=== PATIENT | female | born 2000 | race Caucasian/White ===

== ENCOUNTER → 2023-07-20 19:57 | Outpatient (REF) | payer SELFPAY | LOC: MRI 19:57 | PROVIDERS: ATTENDING PHYSICIAN Family Medicine; REFERRING PHYSICIAN Obstetrics & Gynecology | DX: E22.9 Hyperfunction of pituitary gland, unspecified (principal) | CPT/HCPCS: 70553; A9575 ==

== ENCOUNTER → 2024-10-03 14:48 | Outpatient (REF) | payer OTHER, SELFPAY | LOC: MRI 3T 14:48 | PROVIDERS: ATTENDING PHYSICIAN Family Medicine | DX: D35.2 Benign neoplasm of pituitary gland (principal); E22.1 Hyperprolactinemia | CPT/HCPCS: 70553; A9575 ==